=== PATIENT | male | born 1945 | race Caucasian/White ===

== ENCOUNTER 2023-09-10 09:48 | Outpatient (CLI) | payer OTHER, MEDICARE ==
[~2023-09-10] VITALS: Ht 170.2 cm; Wt 99.0 kg
[~2023-09-10 09:48] MED LIST: ALBUTEROL SULFATE 2.5MG/0.5ML INH NEB SOLN INH PRN; EPINEPHrine INJ 1 MG/ML 1ML AMP IM PRN; diphenhydrAMINE 50MG/ML VIAL IV PRN; methylPREDNISolone 125MG 2ML VIAL IV PRN
[2023-09-10 10:30] VITALS: BP 168/77; O2SAT 90
[2023-09-10] MEDS ORDERED: NS 1,000 ML IV SCH (10:30)
[2023-09-10] MEDS: VEDOLIZUMAB 300 MG in NS 250 ML IV ONE (10:58)
[2023-09-10 11:40] VITALS: BP 164/86; O2SAT 94
== END 2023-09-10 11:40 ==
LOC: M INFU 09:48
PROVIDERS: ATTEND Physician Assistant
DX: K51.90 Ulcerative colitis, unspecified, without complications (principal)
CPT/HCPCS: 96365; J3380